=== PATIENT | male | born 1995 | race African-American/Black ===

== ENCOUNTER 2017-12-21 11:54 | Emergency (ER) | payer SELFPAY ==
[~2017-12-21] VITALS: Ht 188 cm; Wt 81.6 kg
[2017-12-21 12:00] VITALS: BP 164/85
[2017-12-21] MEDS ORDERED: IBUPROFEN600 MG ORAL (12:56)
[2017-12-21] MEDS ORDERED: CLINDAMYCIN HC150 MG ORAL (12:56)
--- NOTE | 2017-12-21 12:57 | Emergency Room Report ---
History of Present Illness General Chief Complaint: Toothache Source: Patient Present Illness HPI 22-year-old male patient presents ER complaining of tooth pain and face swelling for the "past few days". Patient denies drainage of blood or pus in mouth. Patient states he has not been seen by a dentist. Patient reports being seen at [facility] "a few days ago" and receiving a "numbing shot" for the pain. Patient states swelling in his face has gotten worse since that time. Patient denies vision changes, loss of vision. Patient denies fever, SOB, cough, difficulty eating, sore throat, vomiting, rash. Allergies: Coded Allergies: NO KNOWN ALLERGIES (Unverified Allergy, Unknown, 10/13/15) Patient History Past Medical History: see triage record Social History: Denies: smoking, alcohol use, drug use Reviewed Nursing Documentation: PMH: Agreed, PSxH: Agreed Nursing Documentation-PMH Past Medical History: No Stated History Review of Systems All Other Systems: negative except mentioned in HPI Physical Exam Vital Signs Date Time Temp Pulse Resp B/P (MAP) Pulse Ox O2 Delivery O2 Flow Rate FiO2 12/21/17 12:00 97.5 62 20 164/85 98 Room Air Sp02 EP Interpretation: reviewed, normal General Appearance: alert, GCS 15, non-toxic, mild distress Head: normocephalic, atraumatic, other - swelling of right cheek Eyes: bilateral eye normal inspection, bilateral eye PERRL ENT: hearing grossly normal, normal pharynx, normal voice, TMs + canals normal , uvula midline, moist mucus membranes, other - upper right gum: mild inflammation, TTP; no TTP of teeth; no drainage of pus or blood Neck: full range of motion Respiratory: chest non-tender, lungs clear, normal breath sounds, no wheezing, speaking full sentences Cardiovascular #1: regular rate, rhythm, no edema Musculoskeletal: back normal, gait/station normal, normal range of motion, non- tender Neurologic: alert, oriented x3, responsive, motor strength/tone normal, sensory intact, speech normal Skin: normal color, no rash, warm/dry, well hydrated, other - right cheek: edema, TTP, no erythema, no ecchymosis Lymphatic: no adenopathy Medical Decision Making PA Attestation Dr. Cruz is my supervising Physician whom patient management has been discussed with. Diagnostic Impression: Primary Impression: Facial cellulitis Additional Impression: Mouth pain ER Course Pt. presents to the ED c/o tooth pain and face swelling. Ddx considered but are not limited to dental caries, gingivitis, cellulitis, abscess. Vital signs: are WNL, pt. is afebrile ORDERS: None required at this time, the diagnosis is clinical ED INTERVENTIONS: Millry provided for pain DISCHARGE: -Rx provided for Clindamycin. -Rx provided for Ibuprofen Patient was seen and evaluated by Dr. Cruz who agrees with treatment plan. At this time pt. is stable for d/c to home. Will provide printed patient care instructions, and any necessary prescriptions. Patient instructed to complete course of antibiotics. Care plan and follow up instructions have been discussed with the patient prior to discharge. Patient instructed to follow-up with primary care provider in 3-5 days and discuss further treatment and referral. Patient instructed to follow-up with dentist today or tomorrow for further treatment and referral. Patient understands and agrees to treatment plan. Patient provided with list of dental clinics. Patient questions asked and answered. ER precautions given. Patient instructed to return to ER immediately for any new or worsening of symptoms including but not limited to increasing SOB, persistent fever, intractable vomiting. Last Vital Signs Date Time Temp Pulse Resp B/P (MAP) Pulse Ox O2 Delivery O2 Flow Rate FiO2 12/21/17 12:00 97.5 62 20 164/85 98 Room Air Disposition: HOME, SELF-CARE Condition: Stable Scripts Clindamycin Hcl* (CLINDAMYCIN HCL*) 150 Mg Capsule 450 MG ORAL TID for 7 Days, CAP Prov: Shade Banuelos 12/21/17 Ibuprofen* (MOTRIN*) 600 Mg Tablet 600 MG ORAL Q8H Y for For Pain, #30 TAB 0 Refills Prov: Shade Banuelos 12/21/17 Patient Instructions: Cellulitis, [id number], Dental Pain, [id number] Additional Instructions: Report to dentist further further evaluation and treatment today or tomorrow. Followup with primary care provider in 3 -5 days. Take medications as directed. Patient questions asked and answered. ER precautions given, patient instructed to return to ER immediately for any new or worsening of symptoms including but not limited to fever, rash, vomiting. Shade Banuelos Dec 21, 2017 12:57
[2017-12-21] MEDS ORDERED: Norco 5mg/325mg tab ORAL ONE (13:15)
[2017-12-21 13:20] VITALS: BP 157/82
== END 2017-12-21 13:30 | disposition home or self-care (01) ==
LOC: EMR 12:22
DX: K08.89 Other specified disorders of teeth and supporting structures (principal); L03.211 Cellulitis of face
CPT/HCPCS: 99283

== ENCOUNTER 2020-10-18 19:04 | Emergency (ER) | payer SELFPAY ==
[~2020-10-18] VITALS: Ht 188 cm; Wt 108.9 kg
[~2020-10-18 19:04] MED LIST: CLINDAMYCIN HC150 MG ORAL; IBUPROFEN600 MG ORAL
[2020-10-18 19:20] VITALS: BP 128/82
[2020-10-18] MEDS ORDERED: Ketorolac 60mg Inj IM ONE (19:30)
[2020-10-18] MEDS ORDERED: Ketorolac 30mg Inj IV ONE (19:30)
--- NOTE | 2020-10-18 19:48 | Diagnostic Imaging Report ---
EXAM: XR Chest, 1 View CLINICAL HISTORY: CP TECHNIQUE: Frontal view of the chest. COMPARISON: No relevant prior studies available. FINDINGS: Lungs: Unremarkable. No consolidation. Pleural space: Unremarkable. No pneumothorax. Heart: Unremarkable. No cardiomegaly. Mediastinum: Unremarkable. Bones/joints: Unremarkable. IMPRESSION: Normal chest x-ray.
[2020-10-18 19:49] LABS: BASOPHILS % (AUTO) 1.1 % (0.0-2.0); EOSINOPHILS % (AUTO) 1.7 % (0.0-3.0); HEMATOCRIT 39.3 % (42.0-52.0); HEMOGLOBIN 13.4 G/DL (14.2-18.0); LYMPHOCYTES % (AUTO) 32.4 % (20.0-45.0); MEAN CORPUSCULAR VOLUME 86 FL (80-99); MONOCYTES % (AUTO) 6.5 % (1.0-10.0); NEUTROPHILS % (AUTO) 58.3 % (45.0-75.0); PLATELET COUNT 190 K/UL (150-450); RED BLOOD COUNT 4.59 M/UL (4.70-6.10); RED CELL DISTRIBUTION WIDTH 11.7 % (11.6-14.8)
[2020-10-18] MEDS ORDERED: NAPROXEN500 M1 ORAL (20:01)
--- NOTE | 2020-10-18 20:01 | Emergency Room Report ---
History of Present Illness General Chief Complaint: Chest Pain Source: Patient Present Illness HPI 25-year-old male no prior medical history presents with chief complaint of chest wall pain after smoking a marijuana joint earlier this morning. States he feels like he could have pulled a muscle. Patient took Motrin prior to arrival with mild relief. Denies any hemoptysis, history of blood clot, recent trauma/immobilization/surgery, leg swelling, back pain, melena, hematochezia, nausea, vomiting or any other symptoms The patient's symptoms were gradual onset, severity was moderate, duration since 1 day. Quality: pleuritic Past medical history: Denies Past surgical history: Denies Smoking: Denies Alcohol use: Denies Drug use: ++marijuana Review of systems: CONST: No fevers or chills, No night sweats PULMONARY: No productive cough, ++ shortness of breath CARDIAC: ++ chest pain, No palpitations GI: No vomiting, No diarrhea , No melena_or_BRBPR : No dysuria, No hematuria, No discharge NEURO: No new_focal_weakness_or_numbness, No confusion, No vision changes 14 point Review of Systems is otherwise negative except per HPI Physical Exam: GENERAL: Awake_alert_ nontoxic, no acute distress Spo2 99% on RA -normal EYES: Extraocular muscles are intact. Conjunctivae clear. Lids without swelling ENT: External nose and ear normal_in_appearance. Oropharynx clear. Head_atraumatic, Moist_oral_mucosa NECK: No JVD. No meningismus. No thyromegaly. Supple. Trachea midline RESP: Normal respiratory effort. Symmetric rise. No stridor. Clear_to _auscultation_No_rales_No_wheezes CARDIAC: Regular rate and regular rhytm. No_significant pedal edema. ABDOMEN: Soft. Nondistended. Nontender_No_rebound_or_guarding. MSK: Normal muscle tone, without rigidity. Extremities without asymmetric deformity or swelling. SKIN: Warm and dry. No visible cyanosis or pallor NEUROLOGIC: Alert, oriented x3. Motor_and_sensation_grossly_intact. No truncal ataxia. Gait_normal Psych: Normal mood and affect, normal judgment and insight - COORDINATION OF CARE Case was discussed with: Patient Any labs and imaging that were ordered were interpreted as part of the medical decision making: Medical Decision Making/Plan: Differential includes pleurisy, acute coronary syndrome, pulmonary embolism, p neumonia, aortic dissection, pericardial tamponade, musculoskeletal chest pain, among others. Patient is currently well appearing with stable vitals. Acute coronary syndrome is unlikely and the patient is low risk, pain is atypical, nonexertional. Troponin is negative with over 6 hrs of symptoms. EKG without any obvious signs of ischemia. Chest xray shows no evidence of pneumothorax, pneumonia, or significant pleural effusion. The pain is not classic for pericarditis or myocarditis, and the patient has no significant risk factors for a pericardial effusion and has stable vitals signs, unlikely to have tamponade. Pain is not likely to be pulmonary embolism (PERC negative), and no significant PE risk factors. Dimer is negative and patient has low pre test probability for PE. The patient has no significant risk factors for aortic dissection, no history of connective tissue disorder, and the patients pain is not severe, radiating to the back, or tearing in nature. They have normal bilateral radial and pedal pulses. Suspect pleurisy vs MSK pain/strain. Recommend stopping smoking marijuana. Will Dc with NSAID and robaxin. Initial plan: patient observed for several hours in the ED, ECG with no emergent findings, patient discharged with no dangerous vital signs, patient instructed to follow up with PMD in the next 1-2 days to be referred for a treadmill stress test within the next 48-72 hours. Upon calculating the patient's HEART score, they were found to have a HEART score < 4, which indicates low risk, so the patient can be safely discharged with the understanding that they need to make an appointment with a primary care doctor to be referred for a stress test within the next 48-72 hours, or if they cannot arrange that they are to return to the ED, or sooner than that if they have any changing, persistent, or worsening symptoms. Allergies: Coded Allergies: NO KNOWN ALLERGIES (Unverified Allergy, Unknown, 10/13/15) COVID-19 Screening Contact w/high risk pt: No Experienced COVID-19 symptoms?: No COVID-19 Testing performed PARTS PICKER: No Nursing Documentation-PMH Hx Seizures: Yes - "childhood sz" Physical Exam Vital Signs Date Time Temp Pulse Resp B/P (MAP) Pulse Ox O2 Delivery O2 Flow Rate FiO2 10/18/20 19:08 98.6 62 16 128/82 (97) 98 Room Air Sp02 EP Interpretation: reviewed, normal Medical Decision Making Diagnostic Impression: Primary Impression: Chest wall pain EKG Diagnostic Results Troponin ordered: Yes When was troponin ordered?: Oct 18, 2020 EKG Time: 19:17 EP Interpretation: nl Rate: normal Rhythm: NSR ST Segments: no acute changes MARIOLA Moser 12-lead EKG (interpreted by me) Time: 1916 Indication: Rhythm analysis Tracing visualized and Interpreted by me. Rhythm: Normal sinus rhythm Rate: 60 bpm QTc: 366 Morphology: No_significant_ST_elevations_or_depressions, No STEMI Impression: Normal_sinus_rhythm_without_significant_abnormality Rhythm Strip Diag. Results Rhythm Strip Time: 20:00 EP Interpretation: yes Rate: 62 Rhythm: NSR, no PVC's, no ectopy Chest X-Ray Diagnostic Results Chest X-Ray Diagnostic Results : MARIOLA Moser Chest X-Ray: Views: [ 1 ] view(s) Indication: Chest pain Findings: Normal heart size. Mediastinum normal. No infiltrate. Impression: No acute disease The X-ray(s) were independently viewed and interpreted contemporaneously Electronically signed by Betsy browning DO Reevaluation Time: 20:01 Last Vital Signs Date Time Temp Pulse Resp B/P (MAP) Pulse Ox O2 Delivery O2 Flow Rate FiO2 10/18/20 19:20 98.6 65 16 128/82 99 Room Air Status: improved Disposition: HOME, SELF-CARE Admit Decision Time: 20:01 Condition: Stable Scripts Methocarbamol* (ROBAXIN-500*) 500 Mg Tablet 500 MG ORAL TID PRN for For Pain, #15 TAB 0 Refills Prov: Betsy Castillo D.O. 10/18/20 Naproxen* (NAPROXEN*) 500 Mg Tablet.dr 500 MG ORAL TWICE A DAY for 7 Days, #14 TAB Prov: Betsy Castillo D.O. 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 Stop smoking marijuana. Follow-up with your doctor sooner if your condition requires a more timely clinical reevaluation. Return to the emergency department immediately if you feel that your condition is worsening or if you have any new or concerning symptoms. Review your discharge instructions and take any prescriptions given as instructed. [facility] PROVIDES FREE OR LOW-COST HEALTH SERVICES TO PEOPLE WHO CAN SHOW PROOF THAT THEY LIVE IN [facility]. TO FIND MORE CLINICS PARTNERED WITH [facility] TO PROVIDE SERVICE, PLEASE CALL . Betsy Castillo D.O. Oct 18, 2020 20:01
[2020-10-18 20:04] LABS: CALCIUM 8.8 MG/DL (8.5-10.1); CREATININE 1.7 MG/DL (0.55-1.30); POTASSIUM 3.4 MMOL/L (3.5-5.1)
[2020-10-18 20:09] LABS: ALBUMIN/GLOBULIN RATIO 1.1 (1.0-2.7); BILIRUBIN,TOTAL 0.3 MG/DL (0.2-1.0)
[2020-10-18] MEDS ORDERED: ROBAXIN-500MG ORAL (20:30)
[2020-10-18 20:35] VITALS: BP 122/80
--- NOTE | 2020-10-23 14:53 | Cardiology Report ---
APPROVED REPORT EKG Measurement Heart [id number] <Conclusion> Normal sinus rhythm Normal ECG
== END 2020-10-18 20:35 | disposition home or self-care (01) ==
LOC: EMR 19:33
DX: R07.89 Other chest pain (principal); F12.90 Cannabis use, unspecified, uncomplicated
CPT/HCPCS: 36415; 71045; 80053; 84484; 85025; 85379; 93005; 96361; 96374; 99284; J1885; J7030